=== PATIENT | female | born 1985 | race Caucasian/White ===

== ENCOUNTER 2019-06-26 12:45 | Emergency (ER) | payer MEDICAID, SELFPAY ==
[2018-10-06 10:12] VITALS: BMI 30.8
[2019-06-26 12:45] VITALS: BP 138/83; PULSE 87; RESP 18; TEMP 36.4; O2SAT 99; BMI 34.4
--- NOTE | 2019-06-26 13:10 | RAD_ITS ---
STUDY: X-RAY CHEST REASON FOR EXAM: Female, 34 years old. Cough. TECHNIQUE: PA and lateral views of the chest. COMPARISON: None. FINDINGS: The lungs are clear and expanded. Scattered calcified granulomas. There is no demonstrated pleural abnormality. Normal size heart. Normal mediastinum and graham. Normal visualized pulmonary arteries. Normal visualized aortic arch and descending thoracic aorta. Normal visualized thoracic spine. Normal visualized ribs, clavicles, and shoulders. There is no demonstrated abnormality of the visualized soft tissue structures of the upper abdomen. RAD/Chest PA and Lateral IMPRESSION: Scattered calcified granulomas. No acute abnormality is seen. Electronically Signed: Benjamin Armstrong, at 13:19 EDT , Service support ,
--- NOTE | 2019-06-26 13:32 | ED.VISSUMM ---
- ER Visit Summary Date of Service: 06/26/19 Chief Complaint: Cough History of Present Illness: The patient is a 34 F who states that the past week she has had a cough. She states it started off with rhinorrhea and sinus congestion is now moved into her chest. She notes occasional sputum production. Today she coughed with some sputum and reports that she had a small amount of blood with it. Denies any fevers. She is a non-smoker. No known lung conditions. Physical Examination: Afebrile vital signs are stable Gen: Well-nourished well-developed Head: Normocephalic atraumatic Eyes: Perrl EOMI ENT: TMs clear no rhinorrhea moist mucous membranes Neck: Supple no lymphadenopathy no JVD nontender CVS: Regular rate rhythm no murmurs normal S1-S2 Respiratory: No distress clear to auscultation bilaterally chest nontender Abdomen: Soft nontender nondistended normal bowel sounds no masses Back: Nontender Extremity: Nontender no edema Skin: Normal color no rash Neuro: alert orientated ?3 CN II-XII intact normal strength sensation Psych: Normal affect normal mood Test Results: Chest x-ray negative for infiltrate Emergency Department Course and Treatment: She has 1 week of cough with sputum production. Chest x-ray is negative. This most likely a viral illness. Her vital signs are stable and she has no fevers. Only for some Mucinex D. She is to follow-up with primary care if not improving. She was advised this may take up to 3 weeks or even a bit longer to fully resolve. Impression: 1. Acute bronchitis This note was generated with [employer] dictation software. It may contain incorrect words, spelling, and punctuation that were not noted in review of the chart prior to signing ED Disposition - Plan for ED Patient: Disposition: Home or Assisted Living Instructions: BRONCHITIS, No Antibiotic (Adult) Prescriptions: Guaifenesin/Pseudoephedrne HCl [Mucinex D ER 600-60 mg Tablet] 1 ea PO BID #14 tab.er.12h Prescription Printed Referrals: Jack Cullen MD [STAFF PHYSICIAN] - 10-14 Days if not better
== END 2019-06-26 14:03 | disposition home or self-care (01) ==
PROVIDERS: Emergency Provider Emergency Medicine
DX: J20.9 Acute bronchitis, unspecified (principal)
CPT/HCPCS: 71046; 99282

== ENCOUNTER 2020-08-17 17:58 | Emergency (ER) | payer MEDICAID, SELFPAY ==
[2020-08-17 17:59] VITALS: BP 129/95; PULSE 100; RESP 18; TEMP 36.4; O2SAT 98; BMI 34.7
[2020-08-17 18:37] LABS: Color, Urine Yellow (Yellow); Glucose, Dipstick Normal (Normal); Ketone-Dipstick Negative (Negative); Leukocyte Esterase-Dipstick 500 /ul (Negative); Nitrite-Dipstick Negative (Negative); Occult Blood-Urine 10 /ul (Negative); Protein-Dipstick 30 mg/dl (Negative); Urine Bilirubin Dipstick Negative (Negative); Urine Clarity Cloudy (Clear); Urine Urobilinogen Normal (Normal)
--- NOTE | 2020-08-17 18:38 | ED.VIS.GEN ---
History of Present Illness Chief Complaint: Complaint Informant: Patient Onset: Days - 2 days Context: Gradual Onset Current Severity: Mild Maximum Severity: Mild Narrative: Patient presents with dysuria and frequency for the past 2 days. She also states she has not had a bowel movement the past 2 days which is not normal for her. She denies fever or chills. She denies focal abdominal pain. She does report having intermittent cough for the past week. Past Medical History - Allergies and Home Meds Allergies/Adverse Reactions: Allergies No Known Allergies Allergy (Verified 06/26/19 12:47) Primary Care Physician: Iftikhar Acuna MD [STAFF PHYSICIAN] - As Needed Surgical History: - - Tubal ligation Smoking Status: Current every day smoker Review of Systems General: Denies: Chills, Fever Eyes: Denies: Visual changes - bilaterally ENT: Denies: Bilateral ear pain Cardiovascular: Denies: Chest pain Respiratory: Reports: Cough. Denies: Dyspnea Gastrointestinal: Reports: Constipation. Denies: Abdominal pain, Nausea, Vomiting Genitourinary: Reports: Dysuria, Frequency Musculoskeletal: Denies: Extremity Pain Skin: Denies: Rash Neurological: Denies: Headache Hematologic: Denies: Easy bruising, Easy bleeding Allergy: Denies: Uticaria Physical Exam Vital Signs/Narrative: Vital Signs Temp Pulse Resp BP Pulse Ox 08/17/20 17:59 97.5 F L 100 18 129/95 H 98 Inital Vital Signs reviewed: Yes General: Well nourished, Well developed Head: Normocephalic ENT: Moist mucous membranes Neck: Supple Cardiovascular: Regular rate, Regular rhythm Respiratory: No distress, CTA bilaterally Abdomen: Soft, Nontender, Hypoactive bowel sounds Skin: Normal color Neurological: Alert, Oriented x3 Psychological: Normal affect Diagnostic/Tx/Re-eval Impressions KUB X-Ray 08/17/20 18:45 IMPRESSION: Normal x-ray examination of the abdomen and pelvis. No intestinal obstruction. Electronically Signed: Leannachhaya Rodriguez, at 19:26 EDT Tel , Service support , 08/17/20 18:45 KUB [Abdomen Single View] [RAD] Stat Laboratory Results 08/17/20 18:10 Urine Color Yellow Urine Clarity Cloudy Urine pH 7.0 Ur Specific [place] 1.010 Urine Protein 30 H Urine Glucose (UA) Normal Urine Ketones Negative Urine Occult Blood 10 H Urine Nitrite Negative Urine Bilirubin Negative Urine Urobilinogen Normal Ur Leukocyte Esterase 500 H Urine RBC 0-5 SEEN Urine WBC 50-100 SEEN Ur Squamous Epith Cells 0-5 SEEN Urine Bacteria RARE Urine Mucus 2+ - Medical Decision Making Patient has had cough for a week and Covid testing sinus for outpatient swab. Urinalysis does reveal UTI and she was treated with a 3-day course of Bactrim. Per my review of her x-ray she does have diffuse stool throughout her colon. Magnesium citrate has been ordered for her. Patient is referred to Dr. Iftikhar Acuna on the no doc list for follow-up as needed. ED Disposition - Plan for ED Patient: Disposition: Home or Assisted Living Diagnosis: Constipation, UTI (urinary tract infection) Instructions: ED Constipation, ED CYSTITIS Female Adult Prescriptions: Smz/Tmp Ds [Bactrim Ds] 1 tab PO BID #6 tab Transmission Status: Pending to [facility] #30 Magnesium Citrate [Citrate Of Magnesia] 150 ml PO Q4H PRN PRN #300 ml PRN Reason: Constipation Transmission Status: Pending to [facility] #30 Referrals: Iftikhar Acuna MD [STAFF PHYSICIAN] - As Needed
[2020-08-17 18:41] VITALS: BP 122/72; PULSE 92; RESP 16; TEMP 37.2; O2SAT 96
[2020-08-17 18:45] LABS: Mucous, Urine 2+ /hpf (<or=2+); Squamous Epithelial Cells - UA 0-5 SEEN /hpf (5-10)
--- NOTE | 2020-08-17 18:45 | RAD_ITS ---
STUDY: X-RAY - ABDOMEN/PELVIS REASON FOR EXAM: Female, 35 years old. CONSTIPATION, PAIN TECHNIQUE: 2 views of the abdomen. COMPARISON: None. FINDINGS: Normal visualized lung bases. There is an nonobstructive bowel gas pattern. There is no demonstrated free abdominal air. The visualized liver, spleen and kidneys are grossly normal in size and morphology. Normal soft tissue structures. Normal visualized osseous structures. RAD/Abdomen Single View IMPRESSION: Normal x-ray examination of the abdomen and pelvis. No intestinal obstruction. Electronically Signed: Hansa Frias, at 19:26 EDT Tel , Service support ,
[2020-08-17 18:47] LABS: Red Blood Cells-Urine 0-5 SEEN /hpf (0-5); White Blood Cells 50-100 SEEN /hpf (0-5)
[2020-08-17 18:48] LABS: Bacteria RARE /hpf (None Seen)
[2020-08-17 19:39] VITALS: RESP 18
== END 2020-08-17 19:39 | disposition home or self-care (01) ==
PROVIDERS: Emergency Provider Emergency Medicine
DX: N39.0 Urinary tract infection, site not specified (principal); K59.00 Constipation, unspecified; R05 Cough; F17.200 Nicotine dependence, unspecified, uncomplicated
CPT/HCPCS: 74018; 81001; 87635; 99281; 99282; 99283; U0003

== ENCOUNTER 2020-09-14 16:00 | Emergency (ER) | payer MEDICAID, SELFPAY ==
[2020-09-14 16:00] VITALS: BP 125/82; PULSE 99; RESP 18; TEMP 36.6; O2SAT 100; BMI 34.2
--- NOTE | 2020-09-14 16:23 | ED.DCSUM_ITS ---
History of Present Illness Chief Complaint: Shortness of Breath Detail of Chief Complaint: sore swollen throat Informant: Patient Onset: Days - 2-3 Context: Gradual Onset Timing: Continuous Quality: sore and swollen Location: entire throat Current Severity: Moderate Maximum Severity: Moderate Worsened by: Swallowing Relieved by: - - nothing Associated Symptoms: Nasal Congestion - mild, Shortness of Breath - a little, due to throat swelling, - - fevers. Negative for: Headache, Myalgias, Nausea, Vomiting, Diarrhea, Chest Pain, Nonproductive cough, Productive Cough Narrative: Couple days of fevers up to 100.7, sore throat being the main symptom, no chest symptoms or coughing. No headaches or myalgias, no nausea or abdominal pain or diarrhea. No known sick contacts. She works at [employer] and they wear a mask th ere. She does not know if they have had COVID-19 patients. Patient presents during the national coronavirus emergency declaration/pandemic. She denies any known contact with anyone infected with COVID-19. She denies traveling out of the immediate area recently. She has been able to swallow but it is painful. Past Medical History - Allergies and Home Meds Allergies/Adverse Reactions: Allergies No Known Allergies Allergy (Verified 06/26/19 12:47) Primary Care Physician: Care Physician,No Primary [Primary Care Provider] - Past Medical History: None Surgical History: - - Tubal ligation Smoking Status: Unknown if ever smoked Review of Systems General: Reports: Chills, Fever, Malaise Eyes: Denies: Visual changes - bilaterally, Diplopia ENT: Reports: Rhinorrhea - Mild just today, Sore throat. Denies: Bilateral ear pain Cardiovascular: Denies: Chest pain, Palpitations Respiratory: Reports: Dyspnea - Due to throat swelling. See HPI.. Denies: Cough, Dyspnea on exertion Gastrointestinal: Denies: Abdominal pain, Nausea, Vomiting, Diarrhea, Melena, Hematochezia Genitourinary: Denies: Dysuria, Hematuria, Frequency Musculoskeletal: Reports: Neck pain - Anterior soreness bilaterally. Denies: Myalgias, Back pain, Swelling, Extremity Pain Skin: Denies: Rash, Wounds Neurological: Denies: Headache, Weakness, Numbness Physical Exam Vital Signs/Narrative: Vital Signs Temp Pulse Resp BP Pulse Ox 09/14/20 16:00 97.8 F 99 18 125/82 H 100 Inital Vital Signs reviewed: Yes General: Well nourished, Well developed, - - Appearing in no distress, no stridor. Conversive in full sentences without difficulty. Head: Normocephalic, Atraumatic Eyes: Perrl, EOMI Nose: Normal Inspection, No Rhinorrhea Mouth/Throat: Normal Inspection, Airway Patent, Posterior Oropharyngeal Erythema Tonsils: Right Tonsilar Erythema, Left Tonsilar Erythema, Right Tonsilar Swelling, Left Tonsilar Swelling, - - No asymmetry. Uvula is also edematous. No trismus.. Negative for: Right Tonsilar Exudates, Left Tonsilar Exudates Neck: Supple, No Meningismus, Anterior Lymphadenopathy - Bilateral submandibular only. Negative for: Posterior Lymphadenopathy Cardiovascular: Regular rate, Regular rhythm, No murmurs. Negative for: Tachycardia Respiratory: No distress, CTA bilaterally, Chest nontender Abdomen: Soft, Nontender, Nondistended, Normal bowel sounds Back: Nontender, Normal Inspection Extremities: Nontender, No edema. Negative for: Calf Tenderness Skin: Normal color, No rash, No Trauma Neurological: Alert, Oriented x3, Cranial nerves II-XII grossly intact, Normal Strength, Normal Sensation, Normal Gait Psychological: Normal affect, Normal Mood Diagnostic/Tx/Re-eval - Medical Decision Making Rapid strep was obtained and returned positive. I had an outpatient COVID-19 swab sent anyway since she presents during a significant peak in the pandemic. I think she is okay going to work since she is positive for strep, making sure she is wearing a mask the whole time, we will treat her with amoxicillin and she was already given a dose of Decadron and an injection of Toradol to help now. ED Disposition - Plan for ED Patient: Disposition: Home or Assisted Living Diagnosis: Strep pharyngitis Instructions: ED Pharyngitis Strep Confirmed Prescriptions: Amoxicillin 500 mg PO TID #30 tab Transmission Status: Pending to [facility] #30 Referrals: Doctor,Your [STAFF PHYSICIAN] - 1 Week if not improving Additional Instructions: You were tested for COVID-19, however it is sent to an offsite laboratory, and will likely take 3-5 days to come back. Reference the pamphlet including with your discharge papers for information on setting up an online portal account to check the results yourself.
[2020-09-14] MEDS: Ketorolac 60 MG/2 ML Vial IM (16:30)
[2020-09-14] MEDS: dexAMETHasone 4 MG Tablet 8 MG PO (16:55)
[2020-09-14 17:33] VITALS: RESP 17
[2020-09-14 18:15] LABS: Probe Check PASS; Specimen Processing Control PASS
== END 2020-09-14 17:34 | disposition home or self-care (01) ==
PROVIDERS: Emergency Provider Emergency Medicine
DX: J02.0 Streptococcal pharyngitis (principal)
CPT/HCPCS: 87635; 87880; 96372; 99283; U0002